=== PATIENT | male | born 1985 | race Two or more races ===

== ENCOUNTER 2017-09-13 11:38 | Inpatient (IN) | payer BC, OTHER ==
[~2017-09-13] VITALS: Ht 160 cm; Wt 70.8 kg
[2017-09-13 17:29] VITALS: BP 131/89
--- NOTE | 2017-09-13 17:45 | NUR ---
Pre-assessment: assessed pt in intake office, pt is instable condition. pt is main source of information. pt's V/S WNL. explained unit protocols and procedures. pt verbalized understanding.
--- NOTE | 2017-09-13 18:23 | NUR ---
Admission Note: Admitted at 31 year old male under the care of Dr. Jaquan Verdugo for medically supervised withdrawal from ETOH. Patient is alert and verbally responsive. Appears his stated age. He is noted to be slow, soft speech. Good eye contact. Affect is labile. Red eyes, tearing with slumped posture. He is oriented x 4. Denies S/I or H/I noted. Denies AV hallucinations noted. Respirations even and unlabored. No SOB noted. Skin warm and moist to touch. Body search done. No contraband was found. Skin check done. No skin breakdown noted. Abdomen soft and non-distended. BS (+) in all 4 quadrants. Denies any GI symptoms noted at this time. He reports his LBM was this AM. Voids independently. Bladder soft and non-distended. Ambulatory ad john with steady gait. He wishes to be FULL CODE. Follows a regular diet at home. Allergic to Naprosyn. Denies any seizure history, withdrawal-induced delirium nor cardiac complications related to withdrawal. He reports being diagnosed with Anxiety and Depression 11 months ago but was not prescribed any medications. Denies having a PCP. He denies hx of SA or any psychiatric hospitalization. He has attempted to get sober once with this admission being the 2nd time. He reports that his withdrawal symptoms are sweating, shakes, overheating, stomach upset and anxiety. He states I want to get sober because I am going downhill. I need to get my life together and I met a girl and I want to be in a stable relationship with her. He reports that his triggers to relapse are feelings of too much happiness, sadness, stress and anxiety. He states that his way of drinking has caused him to get in trouble with the law, his job and impairing relationships with his family and his current girlfriend. He appears mildly intoxicated at this time with CIWA score of 4 upon admission due to anxiety, agitation and sweats. VS : Temp 98.2, Pulse 94, RR 19, BP 131/89, PL 0/10. O2 sat 98% RA. Substance Use: 1. ETOH (Whiskey) since 15 years old. Orally consumes 750ml to 1000ml of whiskey 4 x a day until he passes out. Last use was 150 ml of whiskey [place] [address] [place] [address] 2. Marijuana since 15 years old. Smokes 2-3 hits from a bong or pipe. Last use was on 08/31/2017 3. Shrooms Used once at 31 years old. Last use was on 03/2017 Treatment History 1. Breathe Life x 11 months in 2017 Orientation to the unit provided. Educated patient on the use of call light and units rules and procedures. Call light in reach. Report given to Dr. Verdugo for admission orders. Orders noted and carried out. Addendum: 09/13/17 at 1843 by AARON AGUIRRE LVN Paged Dr. Verdugo and awaiting for admission orders at this time.
[2017-09-13] MEDS ORDERED: DIPH25CA83 PO (18:47)
[2017-09-13 19:04] LABS: *AMPHETAMINE, URINE NEGATIVE (NEGATIVE); *BARBITURATE, URINE NEGATIVE (NEGATIVE); *CANNABINOID, URINE NEGATIVE (NEGATIVE); *COCCAINE, URINE NEGATIVE (NEGATIVE); *OPIATE, URINE NEGATIVE (NEGATIVE); *PHENCYCLIDINE SCREEN,URINE NEGATIVE (NEGATIVE)
--- NOTE | 2017-09-13 19:04 | NUR ---
End of Shift Notes: Patient completed 4-day Valium taper and will be discharging tomorrow to [facility]. VS monitored closely. No significant abnormalities noted. Withdrawal symptoms were closely monitored. Initial CIWA 9, patient presented with gross tremors, sweating, anxiety and agitation. Last CIWA 8. Patient verbalizes that Valium has been effective in reducing his withdrawal symptoms. Patient requires encouragement to participate in group and activities for socialization due to episodes of self isolation. He continues to be withdrawn and isolative. Support provided. Referred patient to the therapist. He is at high risk for AMA. Oral fluids encouraged. Encouraged to increase PO intake. Appetite fair. All needs met and attended. Will continue to monitor closely. Addendum: 09/13/17 at 1905 by AARON AGUIRRE LVN ERROR IN CHARTING. WRONG PATIENT
--- NOTE | 2017-09-13 19:05 | NUR ---
End of Shift Notes: Patient arrived in the unit at 1823. CIWA 4. VS stable. No significant abnormalities noted. Withdrawal symptoms were closely monitored. Patient presented with anxiety, sweats and agitation. No PRN meds given during the shift. Will continue to monitor and endorse to next shift for continuity of care.
[2017-09-13] MEDS ORDERED: ONDANSETRON HCL 4 MG TABLET PO PRN (19:15)
[2017-09-13] MEDS ORDERED: THIAMINE HCL 200 MG/2 ML VIAL IM ONE (19:15)
[2017-09-13] MEDS ORDERED: DICYCLOMINE HCL 20 MG TABLET PO PRN (19:15)
[2017-09-13] MEDS ORDERED: LORAZEPAM 2 MG/1 ML VIAL IM PRN (19:15)
[2017-09-13] MEDS ORDERED: ONDANSETRON ODT 4 MG TAB.RAPDIS SL PRN (19:15)
[2017-09-13] MEDS ORDERED: IBUPROFEN 600 MG TABLET PO PRN (19:15)
[2017-09-13] MEDS ORDERED: ONDANSETRON 4 MG/2 ML VIAL IM PRN (19:15)
[2017-09-13] MEDS ORDERED: MIRALAX 17 GM POWD.PACK PO PRN (19:15)
[2017-09-13] MEDS ORDERED: LORAZEPAM 1 MG TABLET PO PRN ×2 (19:15)
[2017-09-13] MEDS ORDERED: LOPERAMIDE HCL 2 MG CAPSULE PO PRN ×2 (19:15)
[2017-09-13] MEDS ORDERED: MAG HYDROX/AL HYDROX/SIMETH 30 ML LIQUID UDC PO PRN (19:15)
[2017-09-13] MEDS ORDERED: diphenhydrAMINE 50 MG CAPSULE PO PRN (19:15)
[2017-09-13] MEDS ORDERED: MAGNESIUM HYDROXIDE 30 ML LIQUID UDC PO PRN (19:15)
[2017-09-13] MEDS ORDERED: HYDROXYZINE PAMOATE 25 MG CAPSULE PO PRN (19:15)
[2017-09-13] MEDS ORDERED: ACETAMINOPHEN 325 MG TABLET PO PRN (19:15)
--- NOTE | 2017-09-13 19:15 | NUR ---
Start of Shift Note: Patient is a 31 y.o male admitted today 09/13/17 for medically supervised withdrawal from ETOH. Patient is alert & oriented x4. He has a flat affect with anxious/irritable mood. He presented with a flushed face, clammy skin, fine tremors & reports of 6/10 headache. He denies hallucinations at this time. Last CIWA is 4. He was placed on a 3-day Valium taper to be started tomorrow. Encourage pt to increase fluid intake. All needs attended & met. Educated pt of current plan of care for the night and medication regimen. Safety measures in place. Will continue to monitor patient.
[2017-09-13 19:53] LABS: BASOPHILS # (AUTO) 0.1 K/uL (0.0-8.0); BASOPHILS % (AUTO) 1.5 % (0.0-2.0); EOSINOPHILS # (AUTO) 0.1 K/uL (0.0-0.7); EOSINOPHILS % (AUTO) 1.5 % (0.0-7.0); HEMOGLOBIN 14.6 g/dL (12.5-16.3); LYMPHOCYTES # (AUTO) 2.4 K/uL (20.0-40.0); LYMPHOCYTES % (AUTO) 48.4 % (20.5-51.5); MEAN CORPUSCULAR HEMOGLOBIN 31.2 uug (23.8-33.4); MEAN CORPUSCULAR HGB CONC 34 g/dL (32.5-36.3); MEAN CORPUSCULAR VOLUME 92.3 fL (73.0-96.2); MONOCYTES # (AUTO) 0.4 K/uL (2.0-10.0); MONOCYTES % (AUTO) 8.2 % (0.0-11.0); NEUTROPHILS % (AUTO) 40.4 % (38.5-71.5); PLATELET COUNT (AUTO) 200 K/uL (152-348); RED BLOOD CELL COUNT(AUTO) 4.66 MIL/uL (4.06-5.63); WHITE BLOOD COUNT (AUTO) 4.9 K/uL (3.6-10.2)
[2017-09-13 20:00] VITALS: BP 132/77
[2017-09-13 20:08] LABS: BILIRUBIN,TOTAL 0.6 mg/dL (0.2-1.0); CREATININE 0.9 mg/dL (0.6-1.3); TOTAL PROTEIN, SERUM 7.4 g/dL (6.4-8.2)
--- NOTE | 2017-09-13 20:39 | NUR ---
PRN Ativan & Tylenol Patient presented with 6/10 headache, sweating, fine tremors, anxiety & agitation. No N/V/D noted. Denies hallucinations. CIWA 11 noted at this time. PRN Ativan 1 mg and Tylenol administered as ordered. Safety measures in place. Will monitor for effectiveness of medication,
--- NOTE | 2017-09-13 21:39 | NUR ---
PRN Reassessment Patient verbalized decreased in anxiety & headache improved. Pt still noted with sweating and fine tremors but reported that he felt much better after medication were given. CIWA 9 noted at this time. Encourage pt to drink plenty of fluids for hydration. Safety measures in place. Will continue to monitor patient.
[2017-09-14] VITALS: BP 111/58
[2017-09-14 04:00] VITALS: BP 108/62
--- NOTE | 2017-09-14 07:04 | NUR ---
End of Shift Note: Patient is a 31 y.o male admitted yesterday 09/13/17 for medically supervised withdrawal from ETOH. Patient is alert & oriented x4. During my shift, he presented with withdrawals symptoms such as anxiety agitation, flushed face, clammy skin, fine tremors & headache. No hallucinations were noted during my shift. He was placed on a 3-day Valium taper to be started today. Last CIWA is 10. Pt received PRN Ativan & Tylenol and were effective. Pt remained stable and Vitals noted WNL. Continue to encourage pt to increase fluid intake for hydration and to attend group activities to learn coping skills. He slept for a total of 7 hours. Fluid intake 1293 ml, Voided 2x with no bowel movement. All needs attended. Safety measures in place. Will endorse pt to day shift nurse.
--- NOTE | 2017-09-14 07:15 | NUR ---
Start of Shift Note Pt. is a 31 y/o male admitted for the medically managed withdrawal from ETOH. Pt. was placed on a 3 day Valium taper to manage symptoms. Received pt. in room standing next bed with dark rings around his eyes. Pt. presents as restless and anxious. Upon approach pt. pleasant but guarded. Educated pt. on treatment plan and medication regiment. Pt. verbalize understanding. Encouraged pt. to verbalize concerns and emotions, and to maintain a hygienic person and personal space. Last CIWA of 10. Pt. able to sleep 7 hours. Safety measures in place. Will continue to monitor pt.s behavior for safety.
[2017-09-14 08:00] VITALS: BP 130/69
--- NOTE | 2017-09-14 08:00 | NUR ---
PRN Assessment/ MD communication Pt. CIWA of 19. Pt. diaphoretic, anxious, with hand tremors, and restless. Pt. reports mild nausea. MD notified. Will continue to monitor pt.'s behavior for safety.
[2017-09-14] MEDS: THIAMINE HCL 100 MG TABLET PO SCH (08:30)
[2017-09-14] MEDS: FOLIC ACID 1 MG TABLET PO SCH (08:30)
[2017-09-14] MEDS: DIAZEPAM 10 MG TABLET PO SCH ×2 (08:30→21:15)
[2017-09-14] MEDS: MULTIVITAMINS,THERAPEUTIC TABLET PO SCH (08:30)
[2017-09-14] MEDS ORDERED: TUBERCULIN,PURIF.PROT.DERIV. 5 TU/0.1 ML TEST ID ONE (09:00)
[2017-09-14] MEDS ORDERED: 5 DAY TAPER OF LORAZEPAM -SERENITY PROTOCOL PO PRN (09:00)
[2017-09-14 12:00] VITALS: BP 126/76
--- NOTE | 2017-09-14 12:00 | NUR ---
PRN Assessment/ MD communication Pt. CIWA of 19. Pt. diaphoretic, anxious, with hand tremors, and restless. MD notified. Will continue to monitor pt.'s behavior for safety.
[2017-09-14 16:00] VITALS: BP 140/71
--- NOTE | 2017-09-14 16:00 | NUR ---
PRN Assessment/ MD communication Pt. CIWA of 15. Pt. diaphoretic, anxious, with hand tremors, and restless. Pt. reports feeling better but still feels anxious MD notified. Will continue to monitor pt.'s behavior for safety.
--- NOTE | 2017-09-14 19:15 | NUR ---
Start of Shift Note: Patient is a 31 y.o male admitted today 09/13/17 for medically supervised withdrawal from ETOH. Patient is alert & oriented x4. He continues to present with a flat affect, anxious/irritable mood, sweating & fine tremors. No pain/discomfort noted. Denies hallucinations at this time. Last CIWA is 15 during day shift. He continues on a 3-day Valium taper and tolerating well. Encourage pt to increase fluid intake. All needs attended & met. Educated pt of current plan of care for the night and medication regimen. Safety measures in place. Will continue to monitor patient.
--- NOTE | 2017-09-14 19:22 | NUR ---
End of Shift Note Pt. is a 31 y/o male admitted for the medically managed withdrawal from ETOH. Pt. was placed on a 3 day Valium taper to manage symptoms. Throughout shift pt. presented with anxiety, restlessness, agitation and a diaphoretic brow. Pt. was compliant with medication regiment and treatment plan during shift. Upon approach pt. pleasant but guarded. Last CIWA of 15. Safety measures in place. Will Endorse pt.s care to oncoming nurse
[2017-09-14 20:00] VITALS: BP 127/72
--- NOTE | 2017-09-14 21:00 | NUR ---
MD Visit Patient was seen and examined patient in his room with no new orders noted. Will continue to monitor patient.
--- NOTE | 2017-09-15 | NUR ---
Vitals/CIWA deferred Patient refused vitals at this time. Pt is asleep in bed and appears comfortable. Respiration even & unlabored. Unable to assess CIWA at this time d/t pt asleep and will reassess when awake. Safety measures in place. Will continue to monitor patient.
--- NOTE | 2017-09-15 04:00 | NUR ---
Vitals/CIWA deferred Patient refused vitals at this time. Pt still in bed with eyes close. Respiration even & unlabored. Unable to assess CIWA at this time d/t pt asleep and will reassess when awake. Safety measures in place. Will continue to monitor patient.
--- NOTE | 2017-09-15 07:05 | NUR ---
End of Shift Note: Patient is a 31 y.o male admitted yesterday 09/13/17 for medically supervised withdrawal from ETOH. Patient is alert & oriented x4. During my shift, continues to present with a flat affect, anxious/irritable mood, sweating & fine tremors. No hallucinations were noted during my shift. He was started on a 3-day Valium taper and tolerating well. Last CIWA is 11. No PRN medications received during my shift. Pt remained stable and Vitals noted WNL. Continue to encourage pt to increase fluid intake for hydration and to attend group activities to learn coping skills. He slept for a total of 6 hours. Fluid intake 1585 ml, Voided 3x with no bowel movement. All needs attended. Safety measures in place. Will endorse pt to day shift nurse.
--- NOTE | 2017-09-15 07:57 | NUR ---
START OF SHIFT NOTE Received report from night nurse 31 year old male admitted for ETOH withdrawal and patient continues with Valium taper tolerating well. Per endorsement patient did not receive any PRN last CIWA 5, slept for 6 hours. Received patient alert awake oriented x4, anxious, agitated, restless,bilateral hand tremors noted, body aches, sweats, chills, hot and cold flashes.Skin intact warm and dry to touch. Educated patient with plan of care and medication regimen with good verbal understanding. All safety measures in place,call light within reach. Will continues to monitor.
[2017-09-15 08:00] VITALS: BP 126/70
--- NOTE | 2017-09-15 08:00 | NUR ---
COWS/CIWA ASSESSMENT Patient is alert oriented x4, mood is sad, and continues to exhibit s/s of withdrawal such as bilateral hand tremors, sweats, chills, anxiety, agitation, restless, CIWA score noted-12. Will cont to monitor. Addendum: 09/15/17 at 1241 by GERARD KURTZ LVN correction- patient ios only on CIWA monitoring
[2017-09-15] MEDS: MULTIVITAMINS,THERAPEUTIC TABLET PO SCH (08:34)
[2017-09-15] MEDS: THIAMINE HCL 100 MG TABLET PO SCH (08:34)
[2017-09-15] MEDS: DIAZEPAM 5 MG TABLET PO SCH ×3 (08:34→21:00)
[2017-09-15] MEDS: FOLIC ACID 1 MG TABLET PO SCH (08:34)
[2017-09-15 12:00] VITALS: BP 117/72
--- NOTE | 2017-09-15 12:00 | NUR ---
CIWA ASSESSMENT Patient has poor eye contact, and continues to exhibit s/s of withdrawal such as bilateral hand tremors, anxiety, agitation, restless, patient reported slightly decreased in Sweats, skin is smooth, light headed, CIWA score -12. Will cont to monitor.
--- NOTE | 2017-09-15 14:39 | NUR ---
REFUSED MED Patient refused his scheduled Valium 5mg PO offered x3 risk and benefits explained. Patient verbalized understanding of education. MD notified. Will continues to monitor.
[2017-09-15 16:00] VITALS: BP 112/73
--- NOTE | 2017-09-15 16:00 | NUR ---
CIWA ASSESSMENT Patient is alert oriented x4 and continues to exhibit s/s of withdrawal such as bilateral hand tremors, patient reported slightly decreased in anxiety, agitation, restless, sweats, patient reported slightly decreased in Sweats, skin is smooth, light headed, CIWA score -11. Will cont to monitor.
--- NOTE | 2017-09-15 18:07 | NUR ---
Client prompted to attend group during the time he remains at [facility].
--- NOTE | 2017-09-15 19:01 | NUR ---
END OF SHIFT NOTE Gave report to night nurse, 31 year old male admitted for ETOH withdrawal and continues with Valium taper tolerating well. Patient continues to exhibit light leaded, anxiety, agitation, restless, labile facial expression, anhedonia, unkempt room, diaphoretic, patient was given scheduled medications and patient refused his scheduled Valium offered x3 risk and benefits explained. MD notified. Encourage PO fluids as tolerated. Last CIWA score was 11. Encourage patient to attend groups activities to learn new coping skills. All safety measures in place, call light within reach. Patient endorse to night nurse in stable condition.
--- NOTE | 2017-09-15 19:01 | NUR ---
START OF SHIFT NOTE: The patient is a 31 year old male admitted for Alcohol (Whiskey) and "Shrooms" withdrawal, continues ordered 3 day Valium Taper since 09/14/2017, which tolerated well. The patient did not remains compliant with medications: He is refused scheduled Valium 5 mg PO at 1500. Risks and Benefits was explained to patient. The patient remains compliant with treatment and diet regimen. The patient is alert and oriented x4, ambulatory with steady gait. Speech is soft and clear. The patient reports allergy to Naproxen. Last CIWA=11 at 1600. The patient appears with flat affect and anxious mood: During day shift patient c/o anxiety, agitation, nervousness, irritability, tremors, sweating, restlessness, very mild lightheaded, and fatigue. Respirations are even and unlabored. Skin remains intact, warm, and dry to touch. No PRN medications administrated. Encouraged to attend groups activities. Encouraged for fluid intake as tolerated. All needs met. Safety measures: Call light within reach, bed in the lowest position locked, and padded rails up x2. The patient endorsed by day shift nurse. Will continue to monitor closely.
[2017-09-15 20:00] VITALS: BP 119/70
--- NOTE | 2017-09-15 21:00 | NUR ---
REFUSED SCHEDULED VALIUM 5 MG PO: Patient refused scheduled Valium 5 mg PO at 1500. He said: "I wanna be free from any medications". Risks and Benefits was explained to patient. The patient verbalized understanding. All needs met. Safety measures: Call light within reach, bed is locked in lowest position, and padded bed rails up bilaterally. The patient endorsed by outgoing day shift nurse. Will continue to monitor closely. Addendum: 09/16/17 at 0009 by PETER PERSON RN TIME ERROR: Patient refused scheduled Valium 5 mg PO at 2100.
[2017-09-16] VITALS: BP 105/58
--- NOTE | 2017-09-16 04:00 | NUR ---
VS REFUSED, CIWA DEFERRED VS refused, CIWA deferred at 0400 due to patient sleeping; to be assessed and scored while patient is awake. Respirations are even and unlabored. RR: 14. Safe and calm environment provided. All needs met. Safety measures in place: Call light within reach, bed locked in lowest position, and padded bed rails up bilaterally. Will continue to monitor closely.
--- NOTE | 2017-09-16 07:08 | NUR ---
END OF SHIFT NOTE: Endorsed patient is a 31 year old male admitted for ETOH (Whiskey) and "Shrooms" withdrawal. The patient did not remains compliant with medications: He is refused scheduled Valium 5 mg PO at 2100. He said: "I want to be free from any medications". Risks and Benefits was explained to patient. The patient verbalized understanding. The patient remains compliant with and diet regimen. Patient reports allergy to Naproxen, Regular Diet, is on Full Code, Fall and Seizures Precautions. Patient denies history of withdrawal-induced seizures. Patient is alert and oriented x4, is cooperative. His speech is soft and clear. The patient mood and affect are flat and anxious. CIWA=9 at 2000, CIWA=10 at 0000. The patient presented with anxiety, agitation, nervousness, nasal congestion, sweating, restlessness, and fatigue. VS refused, CIWA deferred at 0400 due to patient sleeping; to be assessed and scored while patient is awake. RR: 14. Respirations are even and unlabored. No PRN Medications administrated during my shift. Safe and calm environment with minimized noises was provided. Patient slept 6 hours, intake 1,555 ml, voided x2, stool x1. All needs met. Safety measures in the place by hospital policy: Call light within reach, bed in the lowest position and locked, padded rails up x2. Patient endorsed to day shift nurse.
--- NOTE | 2017-09-16 07:39 | NUR ---
START OF SHIFT NOTE Received report from night nurse 31 year old male admitted for ETOH withdrawal and patient continues with Valium taper tolerating well. Per endorsement patient did not receive any PRN last CIWA 10, patient refused his scheduled Valium per night nurse, slept for 6 hours. Received patient alert awake oriented x4, bilateral hand tremors noted, sweats, chills, anxious, restless, unkempt room, sad facial expression, Skin intact warm and dry to touch. Educated patient with plan of care and medication regimen with good verbal understanding. All safety measures in place,call light within reach. Will continues to monitor.
[2017-09-16 08:00] VITALS: BP 116/69
--- NOTE | 2017-09-16 08:00 | NUR ---
CIWA ASSESSMENT Patient is alert oriented x4, sad facial expression, unkempt room and exhibit s/s of withdrawal such as bilateral hand tremors, sweats, anxiety, agitation, CIWA score noted-10, Will cont to monitor.
[2017-09-16] MEDS: THIAMINE HCL 100 MG TABLET PO SCH (08:23)
[2017-09-16] MEDS: MULTIVITAMINS,THERAPEUTIC TABLET PO SCH (08:23)
[2017-09-16] MEDS: FOLIC ACID 1 MG TABLET PO SCH (08:23)
[2017-09-16] MEDS ORDERED: DIAZEPAM 5 MG TABLET PO SCH (09:00)
--- NOTE | 2017-09-16 09:38 | NUR ---
REFUSED MED Patient refused his scheduled Valium 5mg PO offered x3 risk and benefits explained. Patient verbalized understanding of education. MD notified. Will continues to monitor.
[2017-09-16 12:00] VITALS: BP 124/79
--- NOTE | 2017-09-16 12:00 | NUR ---
CIWA ASSESSMENT Patient is alert oriented x4, sad facial expression, exhibit s/s of withdrawal such as bilateral hand tremors, sweats, anxiety, agitation, CIWA score noted-8, Will cont to monitor.
--- NOTE | 2017-09-16 13:14 | NUR ---
Client was prompted to attend daily group counseling sessions.
[2017-09-16 16:00] VITALS: BP 123/68
--- NOTE | 2017-09-16 16:00 | NUR ---
CIWA ASSESSMENT Patient continues to exhibit s/s of withdrawal such as slight hand tremors, sweats, anxiety, agitation, CIWA score noted-7, Will cont to monitor.
--- NOTE | 2017-09-16 19:06 | NUR ---
END OF SHIFT NOTE Gave report to night nurse, patient admitted for ETOH withdrawal and continues to refused his scheduled Valium taper. During shift patient presented restless, anxious, agitated, sweats. No PRN medications were given. Patient noted attending groups activities and interacting with peers. Encourage PO fluids as tolerated. Patient scheduled for discharge in AM. All safety measures in place, call light within reach. Patient endorse to night nurse in stable condition.
--- NOTE | 2017-09-16 19:30 | NUR ---
START OF SHIFT Pr is a 31 y/o male admitted on 09/13/17 for ETOH withdrawal. Pt finished a 3 day Valium taper and is scheduled to be d/c tomorrow. Pt tolerated taper well. Last CIWA 7 and no PRNs administered during day shift. Upon assessment pt presents with anxiety, depressed affect, restlessness, difficulty falling asleep, unkempt room, slumped posture and is isolative. Medications due. Safety measures in place. Call light within reach. Will continue to monitor.
[2017-09-16 20:00] VITALS: BP 116/69
--- NOTE | 2017-09-16 20:00 | NUR ---
CIWA 7 Pt presents with anxiety and restlessness. Pt states, "I just want to go to sleep."
--- NOTE | 2017-09-16 20:36 | NUR ---
PRN BENADRYL ADMINISTRATION Pt requests sleep aid for difficulty falling asleep. Safety measures in place. Call light within reach. Will continue to monitor.
--- NOTE | 2017-09-16 21:36 | NUR ---
PRN BENADRYL REASSESSMENT Pt laying in bed with eyes closed, medication noted effective. Respirations even and unlabored. Safety measures in place. Call light within reach. Will continue to monitor.
--- NOTE | 2017-09-17 | NUR ---
CIWA DEFERRED AND VITALS REFUSED Pt laying in bed with eyes closed, CIWA deferred, to be assessed when pt is awake per orders. Vitals refused. Respirations even and unlabored. Safety measures in place. Call light within reach. Will continue to monitor.
[2017-09-17 06:07] LABS: HEPATITIS B SURFACE AG Negative (Negative)
--- NOTE | 2017-09-17 07:03 | NUR ---
END OF SHIFT Pr is a 31 y/o male admitted on 09/13/17 for ETOH withdrawal. Pt finished a 3 day Valium taper and is scheduled to be d/c today. Pt tolerated taper well. Pt presented with anxiety, depressed affect, restlessness, difficulty falling asleep, unkempt room, slumped posture and was isolative. Scheduled medications and PRN Benadryl administered, effective in S/S of withdrawal as verbalized by pt. Last CIWA 7. Pt slept 10 hours. Intake 1096 ml, void x 1, stool x 0. Safety measures in place. Call light within reach. Pts needs have been met. Endorsed to day shift nurse.
--- NOTE | 2017-09-17 07:30 | NUR ---
START OF SHIFT NOTE Received report from night nurse 31 year old male admitted for ETOH withdrawal. Patient completed his Valium taper tolerated well. Per endorsement patient receive any PRN last CIWA 3, patient refused his scheduled Valium per night nurse, slept for 10 hours. Received patient alert awake oriented x4, anxious,agitated. Skin intact warm and dry to touch. Educated patient with plan of care and medication regimen with good verbal understanding. All safety measures in place,call light within reach. Will continues to monitor.
[2017-09-17 08:00] VITALS: BP 107/68
[2017-09-17] MEDS: THIAMINE HCL 100 MG TABLET PO SCH (08:21)
[2017-09-17] MEDS: MULTIVITAMINS,THERAPEUTIC TABLET PO SCH (08:21)
[2017-09-17] MEDS: FOLIC ACID 1 MG TABLET PO SCH (08:21)
--- NOTE | 2017-09-17 09:40 | NUR ---
DISCHARGE NOTE Patient admitted for ETOH withdrawal and completed his Valium taper tolerated well. Patient denies any SI/HI. Vital signs WNL. All discharge paper work completed signed and dated. Patient discharge to [facility] in stable condition on 09/17/17 at 0940. All belongings returned to the patient including medications and prescriptions.
== END 2017-09-17 09:40 | disposition other institution (70) | DRG 895 ==
LOC: SRC 17:28
PROVIDERS: ADMIT Family Medicine Addiction Medicine; ATTEND Family Medicine Addiction Medicine
PROC: HZ2ZZZZ Detoxification Services for Substance Abuse Treatment (ICD-10-PCS; principal; 2017-09-13)
PROC: HZ41ZZZ Group Counseling for Substance Abuse Treatment, Behavioral (ICD-10-PCS; 2017-09-16)
DX: F10.239 Alcohol dependence with withdrawal, unspecified (principal); Y90.1 Blood alcohol level of 20-39 mg/100 ml; Z81.1 Family history of alcohol abuse and dependence; F41.9 Anxiety disorder, unspecified; F32.9 Major depressive disorder, single episode, unspecified
CPT/HCPCS: 36415; 70030-TC; 80307; 83735; 85025; 86580; 86592; 86705; 86803; 87340; 87806; A4663; G0480; J3411; Q0163